=== PATIENT | male | born 1945 | race Caucasian/White ===

== ENCOUNTER → 2019-05-22 | Outpatient (CLI) | payer MEDICARE | END | disposition home or self-care (01) | LOC: US 13:41 | DX: I70.203 Unspecified atherosclerosis of native arteries of extremities, bilateral legs (principal) ==

== ENCOUNTER → 2019-05-27 | Outpatient (CLI) | payer MEDICARE | END | disposition home or self-care (01) | LOC: RAD 13:11 | DX: M81.0 Age-related osteoporosis without current pathological fracture (principal); F17.200 Nicotine dependence, unspecified, uncomplicated; M06.9 Rheumatoid arthritis, unspecified ==

== ENCOUNTER → 2019-11-21 | Outpatient (CLI) | payer MEDICARE ==
--- NOTE | 2019-11-21 09:47 | NUR ---
SPEECH PATHOLOGY Outpatient MBS completed as per orders. Patient recently underwent decompression surgery for cervical spinal stenosis and since that time he reported having difficulty swallowing foods and pills. Patient stated that he often coughs things back up after swallowing. He also admitted that he has been coughing up blood. Further medical history includes COPD, GERD, CAD, HTN. Patient was alert and cooperative and oral exam revealed edentulous status. Lingual/labial and buccal skills were WFL in terms of strength, ROM and coordination. He was assessed with puree, solids including barium coated cookie and bread, and thin liquid by cup. Results revealed oral and pharyngeal swallowing skills WNL across consistencies, however after swallowing cookie and liquid, he coughed them back up. Some blood was also noted along with the material he coughed up. Recommend he undergo esophageal testing due to results displayed. At this time, recommend he remain on present diet with use of universal safe swallow precautions. Patient mentioned that he was scheduled for an appt. with Dr. Maldonado following this procedure. Clinician placed a phone call to the doctor's office and staff was informed of results of MBS, recommendation for esophageal testing and patient spitting up blood. Staff verbalized understanding. Patient was educated on results and page. from assessment and verbalized understanding. Dictated report to follow. Thank you for this referral. GARRY DIA [facility] [employer]
== END | disposition home or self-care (01) ==
LOC: RAD/SH 00:10
DX: R13.10 Dysphagia, unspecified (principal)